=== PATIENT | female | born 1955 | race African-American/Black ===

== ENCOUNTER 2019-02-14 21:03 | Inpatient (IN) ==
[2019-02-14 22:04] LABS: Basophils % 0.3 % (0.0-0.8); Eosinophils % 0.2 % (0.00-10.9); Hematocrit 45.7 VOL% (35.7-47.0); Hemoglobin 13.9 GM/DL (12.0-16.0); Immature Granulocytes % 0.5 %; Immature Granulocytes Absolute 0.06 #; Lymphocytes # 0.4 10*3/uL (1.4-4.0); Lymphocytes % 3.1 % (21.3-54.2); Mean Corpuscular HGB Conc 30.4 GM/DL (32-36); Mean Corpuscular Volume 88.7 FL (87-102); Monocytes % 3.5 % (1.7-12.7); Neutrophils % 92.4 % (38.7-73.9); Platelet Count 221 T/CUMM (130-400); Red Blood Count 5.15 MC/CUMM (3.8-5.5); Red Cell Distribution Width 14.2 % (9.3-17.3)
[2019-02-14 22:18] LABS: Apearance,Urine CLEAR (Clear); Bacteria,Urine Occasional /HPF (Few); Bilirubin,Urine Negative (Negative); Blood, Urine Small mg/dL (Negative); Glucose,Urine (UA) 50 mg/dL (Negative); Hyaline Casts,Urine 3 /LPF (0-3); Ketones,Urine 20 mg/dL (Negative); Mucus,Urine Occasional /LPF (Occasional); Nitrite,Urine Negative (Negative); Protein,Urine 100 MG/DL; RBC,Urine 1 /HPF (0-4); Squamous Epithelial Cell,Urine Occasional /HPF (0-10); Urine Color Yellow (Yellow); Urine Specific Gravity 1.012 (1.001-1.035); Urine Urobilinogen < 2.0 EU/DL (0.2-1.0); WBC,Urine 2 /HPF (0-6)
[2019-02-14 22:21] LABS: Barbiturates Screen,Urine Negative (Negative); Benzodiazepines Screen,Urine Negative (Negative); Cannabinoid Screen,Urine Negative (Negative); Opiate Screen,Urine Negative (Negative); Phencyclidine Screen,Urine Negative (Negative)
[2019-02-14 22:27] LABS: Albumin 2.8 G/DL (3.4-5.0); Calcium 8.7 MG/DL (8.5-10.1); Osmolality,Calculated 290.5 MOS/KG (273-304); Total Protein 7.6 G/DL (6.4-8.3)
[2019-02-14 23:13] LABS: Band Neutrophils 3 % (0-10); Lymphocytes 3 % (20-55); Platelet Estimate Normal; Segmented Neutrophils 91 % (50-85); Total Cells Counted 100
[2019-02-15] MEDS ORDERED: hydrALAZINE 20 MG/1 ML VIAL ONE (02:38)
[2019-02-15] MEDS ORDERED: PROMETHAZINE 25 MG/1 ML VIAL IM PRN (04:07)
[2019-02-15] MEDS ORDERED: MAGNESIUM SULF RIDER 2 GM in PREMIX 1 EACH IV PRN (04:07)
[2019-02-15] MEDS ORDERED: HYDROmorphone 2 MG/1 ML VIAL IV PRN (04:07)
[2019-02-15] MEDS ORDERED: ACETAMINOPHEN 325 MG TABLET PO PRN (04:07)
[2019-02-15] MEDS ORDERED: hydrALAZINE 20 MG/1 ML VIAL IV PRN (04:07)
[2019-02-15] MEDS ORDERED: DEXTROSE 50% 25 GM/50 ML VIAL IV PRN (04:07)
[2019-02-15] MEDS ORDERED: MAGNESIUM SULF RIDER 4 GM in PREMIX 1 EACH IV PRN (04:07)
[2019-02-15] MEDS ORDERED: ONDANSETRON 4 MG/2 ML VIAL IV PRN (04:07)
[2019-02-15] MEDS ORDERED: GLUCAGON 1 MG VIAL IM PRN (04:07)
[2019-02-15] MEDS: SODIUM CHLORIDE 0.9% 1,000 ML IV SCH ×2 (04:52→15:00)
[2019-02-15] MEDS: CIPROFLOXACIN INJ 400 MG in PREMIX 1 EACH IV SCH ×2 (04:52→17:03)
[2019-02-15] MEDS: INSULIN REGULAR 100 UNIT/ML SUBCUT SCH ×5 (04:52→21:29)
[2019-02-15] MEDS: metroNIDAZOLE INJ 500 MG in PREMIX 1 EACH IV SCH ×3 (06:46→21:26)
[2019-02-15] MEDS: ENOXAPARIN 40 MG/0.4 ML SYRINGE SUBCUT SCH (06:46)
[2019-02-15 10:26] LABS: Calcium 8.5 MG/DL (8.5-10.1)
[2019-02-15] MEDS: ASPIRIN EC 81 MG TABLET PO SCH (15:00)
[2019-02-15] MEDS: amLODIPine 10 MG TABLET PO SCH (15:00)
[2019-02-16] MEDS: SODIUM CHLORIDE 0.9% 1,000 ML IV SCH ×2 (02:10→05:46)
[2019-02-16] MEDS: CIPROFLOXACIN INJ 400 MG in PREMIX 1 EACH IV SCH (04:08)
[2019-02-16 05:44] LABS: Basophils % 0.2 % (0.0-0.8); Eosinophils # 0.1 10*3/uL (0.0-0.87); Eosinophils % 2.1 % (0.00-10.9); Hematocrit 36.6 VOL% (35.7-47.0); Immature Granulocytes % 0.4 %; Immature Granulocytes Absolute 0.02 #; Lymphocytes # 1.4 10*3/uL (1.4-4.0); Lymphocytes % 25.7 % (21.3-54.2); Mean Corpuscular HGB Conc 30.1 GM/DL (32-36); Mean Corpuscular Volume 88.2 FL (87-102); Mean Platelet Volume 11.2 FL (9.6-12.0); Monocytes % 12.1 % (1.7-12.7); Neutrophils % 59.5 % (38.7-73.9); Platelet Count 190 T/CUMM (130-400); Red Blood Count 4.15 MC/CUMM (3.8-5.5); Red Cell Distribution Width 14.4 % (9.3-17.3)
[2019-02-16] MEDS: ENOXAPARIN 40 MG/0.4 ML SYRINGE SUBCUT SCH (05:46)
[2019-02-16] MEDS: metroNIDAZOLE INJ 500 MG in PREMIX 1 EACH IV SCH (05:47)
[2019-02-16 05:54] LABS: White Blood Count 5.3 T/CUMM (4-12)
[2019-02-16 06:08] LABS: Albumin 1.9 G/DL (3.4-5.0); Bilirubin,Total 0.7 MG/DL (0.2-1.0); Calcium 7.8 MG/DL (8.5-10.1); Osmolality,Calculated 291.7 MOS/KG (273-304); Total Protein 5.3 G/DL (6.4-8.3)
[2019-02-16 06:16] LABS: Risk Ratio 1.6; VLDL CHOLESTEROL 20.2 MG/DL
[2019-02-16] MEDS ORDERED: POTASSIUM CHLORIDE RIDER 10 MEQ in PREMIX 1 EACH IV PRN (07:10)
[2019-02-16] MEDS: amLODIPine 10 MG TABLET PO SCH (09:27)
[2019-02-16] MEDS: INSULIN REGULAR 100 UNIT/ML SUBCUT SCH ×2 (09:37→12:50)
[2019-02-16] MEDS: ASPIRIN EC 81 MG TABLET PO SCH (09:37)
[2019-02-16] MEDS ORDERED: POTASSIUM CHLORIDE 20 MEQ TABLET PO ONE (11:21)
[2019-02-16 11:47] VITALS: BP 128/80
== END 2019-02-16 15:20 | disposition home or self-care (01) | DRG 871 ==
LOC: N.ED 21:03 → N.EDINP 02-15 01:30 → N.5E 02-15 01:54
PROVIDERS: ADMIT Internal Medicine; ATTEND Internal Medicine